=== PATIENT | male | born 1995 | race Two or more races ===

== ENCOUNTER 2024-06-04 20:11 | Emergency (ER) | payer OTHER ==
[~2024-06-04] VITALS: Ht 162.6 cm; Wt 86.2 kg
[2024-06-04] MEDS ORDERED: TRAMADOL HCL 50 MG TABLET PO ONE (21:15)
[2024-06-04 23:12] LABS: HEMATOCRIT 44.1 % (39.0-48.0); HEMOGLOBIN 15.7 g/dL (13-16.00); MEAN CELL VOLUME 86.5 fL (80.0-100.00); MEAN CORPUSCULAR HEMOGLOBIN 30.8 pg (27.00-32.0); MEAN CORPUSCULAR HGB CONC 35.6 g/dl (32.0-36.0); PLATELET COUNT 269 K/uL (150-450); RED BLOOD COUNT 5.09 M/uL (4.00-6.00); RED CELL DISTRIBUTION WIDTH 13.1 % (11.5-14.5)
[2024-06-04 23:33] LABS: ALBUMIN 4.5 gm/dL (3.4-5.0); BILIRUBIN TOTAL 0.4 mg/dL (0.3-1.2); CALCIUM 9.6 mg/dL (8.5-10.1); CREATININE SERUM 1.15 mg/dL (0.70-1.30); GFR 76.87; GLOBULINA 3.5 G/DL (2.4-3.5); POTASSIUM 4.03 mEq/L (3.5-5.1)
[2024-06-04] MEDS ORDERED: KETO10TA2 PO (23:49)
[2024-06-04 23:58] LABS: URINE APPEARANCE Clear; URINE BILIRRUBIN Negative (NEGATIVE); URINE BLOOD Negative; URINE COLOR Yellow; URINE GLUCOSE Negative (NEGATIVE); URINE KETONE Negative (NEGATIVE); URINE LEUKOCYTE Negative; URINE NITRATE Negative; URINE PROTEIN Negative (NEGATIVE); URINE UROBILINOGEN 0.2 E.U./dl
[2024-06-05 00:02] LABS: URINE BACTERIA 8.8 uL (0.0-1933); URINE RBC 13.5 uL (0.0-20.8); URINE WBC 1.8 uL (0.0-23.2)
[2024-06-05 00:03] LABS: URINE EPITHELIAL CELLS 0.6 uL (0.0-38.8)
== END 2024-06-05 00:45 | disposition home or self-care (01) ==
LOC: ER 20:12
PROVIDERS: General Practice
DX: S00.83XA Contusion of other part of head, initial encounter (principal); S60.221A Contusion of right hand, initial encounter; V49.9XXA Car occupant (driver) (passenger) injured in unspecified traffic accident, initial encounter; Y93.89 Activity, other specified; Y92.413 State road as the place of occurrence of the external cause; Y99.9 Unspecified external cause status